=== PATIENT | male | born 1960 | race Caucasian/White ===

== ENCOUNTER 2018-02-17 21:18 | Inpatient (IN) | payer BC ==
[2018-02-17] MEDS: INSULIN ASPART [NOVOLOG] 3 ML PEN SC (23:00)
[2018-02-17] MEDS ORDERED: GLUCOSE GEL 15 GRAM TUBE BUCCAL (23:45)
[2018-02-17] MEDS ORDERED: GLUCAGON 1 MG INJ IM (23:45)
[2018-02-17] MEDS ORDERED: DEXTROSE 50% 50 ML SYRINGE IV ×2 (23:45)
[2018-02-17] MEDS ORDERED: GLUCOSE GEL 15 GRAM TUBE PO ×2 (23:45)
[2018-02-18] MEDS: clonAZEPAM 0.5 MG TAB PO ×3 (00:01→20:33)
[2018-02-18] MEDS: GABAPENTIN 400 MG CAP PO ×4 (00:02→23:56)
[2018-02-18] MEDS: DEXTROSE 5%-0.45% NACL 1,000 ML IV ×2 (00:02→08:31)
[2018-02-18] MEDS: AMITRIPTYLINE 50 MG TAB PO ×2 (01:55→20:32)
[2018-02-18] MEDS: ARIPIPRAZOLE 5 MG TAB PO ×2 (01:55→08:59)
[2018-02-18] MEDS: morphine 2 MG INJ IV (01:58)
[2018-02-18 02:04] LABS: ADD MAN DIFF? NO
[2018-02-18 02:06] LABS: ABNORMAL IP MESSAGE 1; BASOPHIL # 0.1 10^3/ul (0.0-0.1); BASOPHILS % 0.7 % (0.0-2.0); EOSINOPHILS # 0.9 10^3/ul (0.0-0.5); EOSINOPHILS % 6.1 % (0.0-7.0); HEMATOCRIT 42.7 % (42.0-52.0); HEMOGLOBIN 14.5 g/dl (14.0-18.0); LYMPHOCYTES # 2.1 10^3/ul (0.8-2.9); LYMPHOCYTES % 14.2 % (15.0-51.0); MEAN CORPUSCULAR HEMOGLOBIN 31.3 pg (29.0-33.0); MEAN PLATELET VOLUME 9.2 fl (7.4-10.4); MONOCYTE # 0.7 10^3/ul (0.3-0.9); MONOCYTES % 4.4 % (0.0-11.0); NEUTROPHIL # 10.9 10^3/ul (1.6-7.5); NEUTROPHILS % 73.8 % (39.0-77.0); PLATELET COUNT 340 10^3/UL (140-415); POSITIVE DIFF @See below; RED BLOOD COUNT 4.64 10^6/ul (4.70-6.10); RED CELL DISTRIBUTION WIDTH 13.3 % (11.5-14.5)
[2018-02-18 02:06] LABS: WHITE BLOOD COUNT 14.8 10^3/ul (4.8-10.8)
[2018-02-18 02:41] LABS: LACTIC ACID 6.5 mmol/L (0.5-2.0)
[2018-02-18 03:06] LABS: HEMOGLOBIN A1C 5.9 % (0-5.9)
[2018-02-18] MEDS: SOD CHLORIDE 0.9% 500 ML IV (03:15)
[2018-02-18] MEDS: metroNIDAZOLE 500 MG/NS (PMX) 100 ML IVPB ×3 (03:44→23:56)
[2018-02-18 05:06] LABS: ALANINE AMINOTRANSFERASE 25 IU/L (13-69); ALBUMIN 3.4 g/dl (3.3-4.9); ALBUMIN/GLOBULIN RATIO 1.06; ALKALINE PHOSPHATASE 68 IU/L (42-121); ANION GAP 21 (8-16); ASPARTATE AMINO TRANSFERASE 25 IU/L (15-46); BILIRUBIN,INDIRECT 0.1 mg/dl (0-1.1); BILIRUBIN,TOTAL 0.1 mg/dl (0.2-1.3); BLOOD UREA NITROGEN 43 mg/dl (7-20); CALCIUM 8.7 mg/dl (8.4-10.2); CARBON DIOXIDE 16 mmol/L (21-31); CHLORIDE 108 mmol/L (97-110); CHOL/HDL RATIO 4.6 RATIO; CHOLESTEROL 140 mg/dl (100-200); CREATININE 2.09 mg/dl (0.61-1.24); GLUCOSE 120 mg/dl (70-220); HDL CHOLESTEROL 30 mg/dl (28-71); LDL CHOLESTEROL,CALCULATED 69 mg/dl; MAGNESIUM 1.6 mg/dl (1.7-2.5); PHOSPHORUS 4.6 mg/dl (2.5-4.9); SODIUM 140 mmol/L (135-144); TOTAL PROTEIN 6.6 g/dl (6.1-8.1); TRIGLYCERIDES 207 mg/dl (0-149)
[2018-02-18] MEDS: INSULIN ASPART [NOVOLOG] 3 ML PEN SC ×5 (06:00→20:33)
[2018-02-18] MEDS ORDERED: LORAZEPAM 2 MG INJ IV (06:30)
[2018-02-18] MEDS: FUROSEMIDE 40 MG TAB PO (08:32)
[2018-02-18] MEDS: LISINOPRIL 10 MG TAB PO (08:32)
[2018-02-18] MEDS: FINASTERIDE 5 MG TAB PO (08:58)
[2018-02-18] MEDS: FAMOTIDINE 20 MG TAB PO (08:58)
[2018-02-18] MEDS: SPIRONOLACTONE 50 MG TAB PO (08:59)
[2018-02-18] MEDS: ASPIRIN (EC) 81 MG TAB PO (08:59)
[2018-02-18] MEDS ORDERED: clonAZEPAM 0.5 MG TAB PO (09:00)
[2018-02-18] MEDS: CYCLOBENZAPRINE 10 MG TAB PO (09:00)
[2018-02-18] MEDS: CARISOPRODOL 350 MG TAB PO (09:04)
[2018-02-18 11:38] LABS: LACTIC ACID 2.4 mmol/L (0.5-2.0)
[2018-02-18] MEDS ORDERED: HYDROCODONE/APAP (5/325) TAB PO (12:00)
[2018-02-18] MEDS: HYDROCODONE/APAP (10/325) TAB PO ×3 (12:19→20:34)
[2018-02-18 14:10] LABS: AMPHETAMINE/METHAMPHETAMINE NEGATIVE (NEGATIVE); BARBITURATES NEGATIVE (NEGATIVE); BENZODIAZEPINES NEGATIVE (NEGATIVE); CANNABINOIDS NEGATIVE (NEGATIVE); COCAINE NEGATIVE (NEGATIVE); OPIATES POSITIVE (NEGATIVE)
[2018-02-18 14:26] LABS: ADD UMIC NO; UR ASCORBIC ACID NEGATIVE (NEGATIVE); UR BILIRUBIN (Dip) NEGATIVE (NEGATIVE); UR BLOOD (Dip) NEGATIVE (NEGATIVE); UR CLARITY CLEAR (CLEAR); UR COLOR YELLOW (YELLOW); UR GLUCOSE (Dip) NEGATIVE (NEGATIVE); UR KETONES (Dip) NEGATIVE (NEGATIVE); UR LEUKOCYTE ESTERASE (Dip) NEGATIVE Leu/ul (NEGATIVE); UR NITRITE (Dip) NEGATIVE (NEGATIVE); UR SPECIFIC GRAVITY (Dip) 1.017 (1.003-1.030); UR TOTAL PROTEIN (Dip) NEGATIVE (NEGATIVE); UR UROBILINOGEN (Dip) NEGATIVE (NEGATIVE)
[2018-02-18 15:12] LABS: CREATINE KINASE 106 IU/L (23-200)
[2018-02-18] MEDS: SOD CHLORIDE 0.45% 1,000 ML IV ×2 (15:42→20:36)
[2018-02-18] MEDS: CIPROFLOXACIN 400MG/D5W 200 ML IVPB ×2 (15:42→20:31)
[2018-02-18] MEDS: MAGNESIUM SULFATE 2 GM/50 ML 50 ML IVPB (18:19)
[2018-02-18 18:53] LABS: SODIUM,URINE RANDOM 44 mmol/L (30-90)
[2018-02-18 18:53] LABS: CREATININE,URINE RANDOM 163.69 mg/dl (20-370)
[2018-02-18 20:20] LABS: LACTIC ACID 1.9 mmol/L (0.5-2.0)
[2018-02-18] MEDS: TAMSULOSIN (SR) 0.4 MG CAP PO (20:32)
[2018-02-19 01:17] LABS: LACTIC ACID 1.2 mmol/L (0.5-2.0)
[2018-02-19] MEDS: metroNIDAZOLE 500 MG/NS (PMX) 100 ML IVPB ×4 (05:23→22:05)
[2018-02-19] MEDS: GABAPENTIN 400 MG CAP PO ×3 (05:23→22:05)
[2018-02-19] MEDS: INSULIN ASPART [NOVOLOG] 3 ML PEN SC ×4 (07:25→21:00)
[2018-02-19] MEDS: SOD CHLORIDE 0.45% 1,000 ML IV ×3 (08:00→17:35)
[2018-02-19] MEDS: FINASTERIDE 5 MG TAB PO (08:40)
[2018-02-19] MEDS: ARIPIPRAZOLE 5 MG TAB PO (08:40)
[2018-02-19] MEDS: clonAZEPAM 0.5 MG TAB PO ×2 (08:40→20:39)
[2018-02-19] MEDS: ASPIRIN (EC) 81 MG TAB PO (08:40)
[2018-02-19] MEDS: FAMOTIDINE 20 MG TAB PO (08:40)
[2018-02-19] MEDS: SPIRONOLACTONE 50 MG TAB PO (08:40)
[2018-02-19] MEDS: CIPROFLOXACIN 400MG/D5W 200 ML IVPB ×2 (08:40→20:43)
[2018-02-19] MEDS: NICOTINE (14 MG/24 HR) PATCH TRANSDERM (08:41)
[2018-02-19] MEDS: HYDROCODONE/APAP (10/325) TAB PO ×2 (08:41→16:15)
[2018-02-19 09:28] LABS: ADD MAN DIFF? NO
[2018-02-19 09:45] LABS: BASOPHIL # 0.1 10^3/ul (0.0-0.1); BASOPHILS % 0.4 % (0.0-2.0); EOSINOPHILS # 0.3 10^3/ul (0.0-0.5); EOSINOPHILS % 2.2 % (0.0-7.0); HEMATOCRIT 36.3 % (42.0-52.0); HEMOGLOBIN 12.4 g/dl (14.0-18.0); LYMPHOCYTES # 1.8 10^3/ul (0.8-2.9); LYMPHOCYTES % 14.9 % (15.0-51.0); MEAN CORPUSCULAR HEMOGLOBIN 31.8 pg (29.0-33.0); MEAN CORPUSCULAR HGB CONC 34.2 g/dl (32.0-37.0); MEAN CORPUSCULAR VOLUME 93.1 fl (82.0-101.0); MEAN PLATELET VOLUME 9.1 fl (7.4-10.4); MONOCYTE # 0.6 10^3/ul (0.3-0.9); MONOCYTES % 5.1 % (0.0-11.0); NEUTROPHIL # 9.5 10^3/ul (1.6-7.5); NEUTROPHILS % 76.6 % (39.0-77.0); PLATELET COUNT 332 10^3/UL (140-415); RED CELL DISTRIBUTION WIDTH 13.3 % (11.5-14.5)
[2018-02-19 09:45] LABS: WHITE BLOOD COUNT 12.4 10^3/ul (4.8-10.8)
[2018-02-19 10:08] LABS: LACTIC ACID 1.5 mmol/L (0.5-2.0)
[2018-02-19 10:22] LABS: ANION GAP 15 (8-16); BLOOD UREA NITROGEN 35 mg/dl (7-20); CARBON DIOXIDE 24 mmol/L (21-31); CHLORIDE 105 mmol/L (97-110); CREATININE 1.41 mg/dl (0.61-1.24); GLUCOSE 92 mg/dl (70-220); MAGNESIUM 1.8 mg/dl (1.7-2.5); PHOSPHORUS 3.2 mg/dl (2.5-4.9); POTASSIUM 5.3 mmol/L (3.5-5.1); SODIUM 139 mmol/L (135-144)
[2018-02-19] MEDS ORDERED: LORAZEPAM 2 MG INJ IV (15:30)
[2018-02-19 15:55] LABS: ANION GAP 17 (8-16); BLOOD UREA NITROGEN 33 mg/dl (7-20); CALCIUM 9.2 mg/dl (8.4-10.2); CARBON DIOXIDE 26 mmol/L (21-31); CHLORIDE 102 mmol/L (97-110); CREATININE 1.23 mg/dl (0.61-1.24); GLUCOSE 94 mg/dl (70-220); POTASSIUM 5.4 mmol/L (3.5-5.1); SODIUM 140 mmol/L (135-144)
[2018-02-19 17:26] LABS: CREATININE, RANDOM URINE 181 mg/dL (20-370); MICROALBUMIN 1.2 mg/dL; MICROALBUMIN/CREATININE RATIO 7 (<30)
[2018-02-19] MEDS: TAMSULOSIN (SR) 0.4 MG CAP PO (20:39)
[2018-02-19] MEDS: AMITRIPTYLINE 50 MG TAB PO (20:40)
[2018-02-20] MEDS: metroNIDAZOLE 500 MG/NS (PMX) 100 ML IVPB (05:21)
[2018-02-20] MEDS: GABAPENTIN 400 MG CAP PO ×3 (05:21→22:17)
[2018-02-20] MEDS: SOD CHLORIDE 0.45% 1,000 ML IV ×2 (05:26→14:02)
[2018-02-20] MEDS: CARISOPRODOL 350 MG TAB PO ×2 (05:45→17:48)
[2018-02-20] MEDS: HYDROCODONE/APAP (10/325) TAB PO ×4 (05:45→17:47)
[2018-02-20] MEDS: INSULIN ASPART [NOVOLOG] 3 ML PEN SC ×4 (07:25→21:00)
[2018-02-20 08:03] LABS: ADD MAN DIFF? NO
[2018-02-20 08:07] LABS: BASOPHILS % 0.4 % (0.0-2.0); EOSINOPHILS # 0.2 10^3/ul (0.0-0.5); EOSINOPHILS % 2.8 % (0.0-7.0); HEMATOCRIT 34.3 % (42.0-52.0); HEMOGLOBIN 11.8 g/dl (14.0-18.0); LYMPHOCYTES # 1.8 10^3/ul (0.8-2.9); LYMPHOCYTES % 23.5 % (15.0-51.0); MEAN CORPUSCULAR HEMOGLOBIN 31.7 pg (29.0-33.0); MEAN CORPUSCULAR HGB CONC 34.4 g/dl (32.0-37.0); MEAN CORPUSCULAR VOLUME 92.2 fl (82.0-101.0); MEAN PLATELET VOLUME 9.5 fl (7.4-10.4); MONOCYTE # 0.4 10^3/ul (0.3-0.9); MONOCYTES % 5.6 % (0.0-11.0); NEUTROPHIL # 5.1 10^3/ul (1.6-7.5); NEUTROPHILS % 66.8 % (39.0-77.0); PLATELET COUNT 313 10^3/UL (140-415); RED BLOOD COUNT 3.72 10^6/ul (4.70-6.10); RED CELL DISTRIBUTION WIDTH 13.5 % (11.5-14.5)
[2018-02-20 08:07] LABS: WHITE BLOOD COUNT 7.6 10^3/ul (4.8-10.8)
[2018-02-20 08:26] LABS: MAGNESIUM 1.4 mg/dl (1.7-2.5)
[2018-02-20 08:26] LABS: PHOSPHORUS 3.6 mg/dl (2.5-4.9)
[2018-02-20] MEDS: clonAZEPAM 0.5 MG TAB PO ×2 (08:37→22:27)
[2018-02-20] MEDS: FINASTERIDE 5 MG TAB PO (08:37)
[2018-02-20] MEDS: ASPIRIN (EC) 81 MG TAB PO (08:37)
[2018-02-20] MEDS: FAMOTIDINE 20 MG TAB PO (08:37)
[2018-02-20] MEDS: CIPROFLOXACIN 400MG/D5W 200 ML IVPB (08:37)
[2018-02-20] MEDS: NICOTINE (14 MG/24 HR) PATCH TRANSDERM (08:39)
[2018-02-20] MEDS: ARIPIPRAZOLE 5 MG TAB PO (08:39)
[2018-02-20] MEDS: metroNIDAZOLE 500 MG TAB PO ×2 (14:00→22:17)
[2018-02-20] MEDS: MAGNESIUM SULFATE 2 GM/50 ML 50 ML IVPB (14:03)
[2018-02-20] MEDS: CIPROFLOXACIN 500 MG TAB PO (17:48)
[2018-02-20] MEDS ORDERED: ZOLPIDEM 5 MG TAB PO (18:30)
[2018-02-20] MEDS ORDERED: traZODone 50 MG TAB PO (19:30)
[2018-02-20] MEDS: DOCUSATE SODIUM 100 MG CAP PO (21:00)
[2018-02-20] MEDS: AMITRIPTYLINE 50 MG TAB PO (22:16)
[2018-02-20] MEDS: TAMSULOSIN (SR) 0.4 MG CAP PO (22:17)
[2018-02-21] MEDS: SOD CHLORIDE 0.45% 1,000 ML IV
[2018-02-21] MEDS: ZOLPIDEM 5 MG TAB PO (00:57)
[2018-02-21] MEDS: CIPROFLOXACIN 500 MG TAB PO (06:36)
[2018-02-21] MEDS: GABAPENTIN 400 MG CAP PO ×2 (06:36→13:46)
[2018-02-21] MEDS: metroNIDAZOLE 500 MG TAB PO ×2 (06:38→13:46)
[2018-02-21] MEDS: INSULIN ASPART [NOVOLOG] 3 ML PEN SC ×2 (07:25→11:20)
[2018-02-21] MEDS: FINASTERIDE 5 MG TAB PO (08:01)
[2018-02-21] MEDS: DOCUSATE SODIUM 100 MG CAP PO (08:01)
[2018-02-21] MEDS: NICOTINE (14 MG/24 HR) PATCH TRANSDERM (08:01)
[2018-02-21] MEDS: FAMOTIDINE 20 MG TAB PO (08:01)
[2018-02-21] MEDS: CARISOPRODOL 350 MG TAB PO (08:01)
[2018-02-21] MEDS: ASPIRIN (EC) 81 MG TAB PO (08:01)
[2018-02-21] MEDS: HYDROCODONE/APAP (10/325) TAB PO ×2 (08:02→13:46)
[2018-02-21] MEDS: clonAZEPAM 0.5 MG TAB PO (08:02)
[2018-02-21] MEDS: ARIPIPRAZOLE 5 MG TAB PO (08:02)
== END 2018-02-21 16:58 | disposition home or self-care (01) | DRG 392 ==
LOC: TEL 21:18
PROVIDERS: Family Medicine
DX: A08.4 Viral intestinal infection, unspecified (principal); N17.9 Acute kidney failure, unspecified; E87.2 Acidosis; E11.22 Type 2 diabetes mellitus with diabetic chronic kidney disease; E87.5 Hyperkalemia; I12.9 Hypertensive chronic kidney disease with stage 1 through stage 4 chronic kidney disease, or unspecified chronic kidney disease; N18.3 Chronic kidney disease, stage 3 (moderate); G40.909 Epilepsy, unspecified, not intractable, without status epilepticus; B18.2 Chronic viral hepatitis C; Z79.4 Long term (current) use of insulin
CPT/HCPCS: 70551; 74018; 76775; 76856; 80048; 80053; 80061; 80307; 81003; 82043; 82550; 82962; 83036; 83605; 83735; 84100; 84155; 84300; 85025; 87040; 88104; 93306

== ENCOUNTER 2018-03-27 02:50 | Inpatient (IN) | payer BC ==
[2018-03-27] MEDS ORDERED: ONDANSETRON 4 MG INJ IV (04:30)
[2018-03-27] MEDS ORDERED: DOCUSATE SODIUM 100 MG CAP PO (04:30)
[2018-03-27] MEDS ORDERED: LORAZEPAM 2 MG INJ IV (04:30)
[2018-03-27] MEDS ORDERED: BISACODYL (EC) 5 MG TAB PO (04:30)
[2018-03-27] MEDS ORDERED: NITROGLYCERIN (SL) 0.4 MG TAB SL (04:30)
[2018-03-27] MEDS ORDERED: NACL 0.9% 3 ML SYG IV (04:30)
[2018-03-27] MEDS ORDERED: ACETAMINOPHEN 325 MG TAB PO (04:30)
[2018-03-27] MEDS ORDERED: DEXTROSE 50% 50 ML SYRINGE IV ×2 (05:00)
[2018-03-27] MEDS ORDERED: GLUCAGON 1 MG INJ IM (05:00)
[2018-03-27] MEDS ORDERED: GLUCOSE GEL 15 GRAM TUBE PO ×2 (05:00)
[2018-03-27] MEDS ORDERED: GLUCOSE GEL 15 GRAM TUBE BUCCAL (05:00)
[2018-03-27] MEDS: ARIPIPRAZOLE 5 MG TAB PO (09:06)
[2018-03-27] MEDS: metFORMIN (XR) 500 MG TAB PO (09:06)
[2018-03-27] MEDS: ASPIRIN (EC) 81 MG TAB PO (09:06)
[2018-03-27] MEDS: FINASTERIDE 5 MG TAB PO (09:07)
[2018-03-27] MEDS ORDERED: AMITRIPTYLINE 50 MG TAB PO (21:00)
== END 2018-03-27 12:35 | disposition home or self-care (01) | DRG 917 ==
LOC: TEL 02:50
PROVIDERS: Internal Medicine
DX: T40.601A Poisoning by unspecified narcotics, accidental (unintentional), initial encounter (principal); G92 Toxic encephalopathy; N17.9 Acute kidney failure, unspecified; E11.9 Type 2 diabetes mellitus without complications; Z72.0 Tobacco use; B19.20 Unspecified viral hepatitis C without hepatic coma; F91.9 Conduct disorder, unspecified
CPT/HCPCS: 82962